=== PATIENT | female | born 1965 | race Caucasian/White ===

== ENCOUNTER 2017-06-02 13:33 | Emergency (ER) | payer MEDICARE, OTHER ==
[~2017-06-02] VITALS: Ht 160 cm; Wt 57.2 kg
[2017-06-02 13:50] VITALS: BP 120/53
[2017-06-02] MEDS ORDERED: CLIN300C8 PO (14:26)
[2017-06-02] MEDS ORDERED: BACI28.34 TP (14:26)
--- NOTE | 2017-06-02 14:27 | PHYS DOC ---
Past Medical History Past Medical History: Diabetes-Type II, Hypertension, Hypothyroid Past Surgical History: Tubal ligation Alcohol Use: Rarely Drug Use: Methamphetamine Adult General Chief Complaint Chief Complaint: LOWER EXT PAIN HPI HPI 51-year-old female presenting to the emergency department with mild redness and pain in the right leg after injecting meth. She describes a mild pain that is nonradiating intermittent and without alleviating factors. The patient is obviously awake and alert and opens eyes spontaneously. She is not sleepy as noted in the triage assessment. Review of systems is negative for fevers chills nausea vomiting abdominal pain chest pain shortness of breath. All other review of systems is negative unless otherwise noted in history of present illness. ED course: 51-year-old female presenting with mild cellulitis on the lateral portion of her right leg. I prescribed the patient clindamycin and she is allergic to cephalexin to follow-up with her doctor in 2-3 days. The patient was then discharged home in stable condition to follow up with their primary care physician over the next 2-3 days. They were to return if their symptoms worsened or if they were concerned for any reason. [id number] discharge instructions and return precautions were given. Patient's questions were answered to their satisfaction. Patient is comfortable plan. Review of Systems Review of Systems SEE ABOVE. Allergies Allergies Allergies Coded Allergies Type Severity Reaction Last Updated Verified Penicillins Allergy Unknown 06/02/17 Yes cephalexin Allergy Unknown 06/02/17 Yes Physical Exam Physical Exam SEE ABOVE Constitutional: Well developed, well nourished, no acute distress, non-toxic appearance. [] HENT: Normocephalic, atraumatic, bilateral external ears normal, oropharynx moist, no oral exudates, nose normal. [] Eyes: PERRLA, EOMI, conjunctiva normal, no discharge. [] Neck: Normal range of motion, no tenderness, supple, no stridor. [] Cardiovascular:Heart rate regular rhythm, no murmur [] Lungs & Thorax: Bilateral breath sounds clear to auscultation [] Abdomen: Bowel sounds normal, soft, no tenderness, no masses, no pulsatile masses. [] Skin: Warm, dry, no erythema, mild erythema surrounding the patient's injection site. No palpable fluctuant masses. Less than half centimeter in diameter. Back: No tenderness, no CVA tenderness. [] Extremities: No tenderness, no cyanosis, no clubbing, ROM intact, no edema. [] Neurologic: Alert and oriented X 3, normal motor function, normal sensory function, no focal deficits noted. [] Psychologic: Affect normal, judgement normal, mood normal. [] Current Patient Data Vital Signs Vital Signs Date Time Temp Pulse Resp B/P (MAP) Pulse Ox O2 Delivery O2 Flow Rate FiO2 06/02/17 13:50 97.5 78 20 120/53 (75) 99 Room Air 97.5 EKG EKG [] Radiology/Procedures Radiology/Procedures [] Course & Med Decision Making Course & Med Decision Making Pertinent Labs and Imaging studies reviewed. (See chart for details) [] Dragon Disclaimer Dragon Disclaimer This electronic medical record was generated, in whole or in part, using a voice recognition dictation system. Departure Departure Impression: Primary Impression: Cellulitis Disposition: HOME, SELF-CARE Condition: STABLE Patient Instructions: Cellulitis Additional Instructions: Thank you for allowing us to participate in your care today. Followup with your primary care physician in 3 days if your symptoms do not improve. Call your Primary Doctor tomorrow and inform them of your visit today. If you do not have a primary care provider you can ask for a list of our primary care providers. Return to the emergency department you have any new or concerning findings. This should be evaluated by the primary care physician and any necessary consulting services for continued management within a few days after discharge. Return to emergency room if you have any new or concerning symptoms including but not limited to fever, chills, nausea, vomiting, intractable pain, any new rashes, chest pain, shortness of air, uncontrolled bleeding, difficulty breathing, and/or vision loss. Scripts Bacitracin/Polymyxin B Sulfate (POLYSPORIN TOPICAL OINT) 28.3 Gm Oint...g. 1 JUNE TP BID for WOUND CARE, #1 TUBE DIRECTED BY PHYSICIAN Prov: HORACE LÓPEZ MD 06/02/17 Clindamycin Hcl (CLINDAMYCIN HCL) 300 Mg Capsule 1 CAP PO TID, #15 CAP 0 Refills Prov: HORACE LÓPEZ MD 06/02/17 HORACE LÓPEZ MD Jun 02, 2017 14:27
== END 2017-06-02 14:53 | disposition home or self-care (01) ==
LOC: ER 13:33
DX: L03.115 Cellulitis of right lower limb (principal); E03.9 Hypothyroidism, unspecified; E11.9 Type 2 diabetes mellitus without complications; F15.10 Other stimulant abuse, uncomplicated; I10 Essential (primary) hypertension; Z88.0 Allergy status to penicillin; Z88.1 Allergy status to other antibiotic agents
CPT/HCPCS: 99283